=== PATIENT | female | born 1945 ===

== ENCOUNTER 2023-08-07 12:30 | Inpatient (IN) | payer OTHER ==
[~2023-08-07] VITALS: Ht 157.5 cm; Wt 54.4 kg
[2023-08-07] MEDS ORDERED: NORVASC2.5 M1 (14:46)
[2023-08-07] MEDS ORDERED: CRESTOR5 MG (14:46)
[2023-08-07] MEDS ORDERED: DIOVAN40 MG (14:46)
[2023-08-07] MEDS ORDERED: FARXIGA5 MG (14:52)
[2023-08-07] MEDS ORDERED: TRADJENTA5 MG (14:52)
[2023-08-07] MEDS ORDERED: GLUCOTROL XL5 MG (14:53)
[2023-08-07] MEDS ORDERED: LATANOPROST2.5 ML (14:53)
[2023-08-07] MEDS ORDERED: NASAL MIST126 ML (14:53)
[2023-08-07] MEDS ORDERED: OSTERA TABLET1 EACH (14:53)
[2023-08-07] MEDS ORDERED: DORZOLAMIDE HCL10 ML (14:53)
[2023-08-17] MEDS ORDERED: ERTAPENEM SODIUM 1,000 MG VIAL IV ONE (12:45)
[2023-08-17] MEDS ORDERED: DIBUCAINE 15 GM OINT..GM. TUBE RECTAL ONE (12:45)
[2023-08-17] MEDS ORDERED: POVIDONE-IODINE 118 ML BOTT TOP ONE (12:45)
[2023-08-17] MEDS ORDERED: BUPIVACAINE HCL 30 ML VIAL IJ ONE (12:45)
[2023-08-17] MEDS ORDERED: HEMOSTATIC MATRIX 1 KIT KIT TOP ONE (12:45)
[2023-08-17] MEDS ORDERED: LIDOCAINE HCL 1%/EPINEPHRINE 20ML VIAL IJ ONE (12:45)
[2023-08-17] MEDS ORDERED: RINGERS SOLUTION,LACTATED 1,000 ML IV SCH ×2 (13:00→15:30)
[2023-08-17] MEDS ORDERED: MORPHINE SULFATE 4 MG/ML CARTRIDGE IV PRN ×2 (13:00→15:30)
[2023-08-17] MEDS ORDERED: ONDANSETRON HCL 2 MG/ML VIAL IV PRN ×2 (13:00→15:30)
[2023-08-17] MEDS ORDERED: DEXTROSE 50 % IN WATER 0.5 G/ML VIAL IV PRN (13:00)
[2023-08-17] MEDS ORDERED: SUGAMMADEX SODIUM 200 MG/2 ML VIAL IV ONE (13:45)
[2023-08-17] MEDS ORDERED: ACETAMINOPHEN 500 MG GEL..CAP PO SCH ×2 (14:00→18:00)
[2023-08-17 14:41] LABS: HEMOGLOBIN 12.6 g/dL (12.0-15.00); MEAN CELL VOLUME 92.7 fL (80.00-100.00); MEAN CORPUSCULAR HEMOGLOBIN 30.7 pg (27.00-32.0); MEAN CORPUSCULAR HGB CONC 33.1 g/dl (32.0-36.0); PLATELET COUNT 193 K/uL (150-450); RED CELL DISTRIBUTION WIDTH 13.6 % (11.5-14.5)
[2023-08-17 14:59] LABS: ALBUMIN 3.4 gm/dL (3.4-5.0); CALCIUM 8.7 mg/dL (8.5-10.1); CREATININE SERUM 1.58 mg/dL (0.55-1.02); GFR 31.47; MAGNESIUM 2.2 mg/dL (1.8-2.4); PHOSPHOROUS 5.9 mg/dL (2.5-4.9); POTASSIUM 4.24 mEq/L (3.5-5.1)
[2023-08-17] MEDS ORDERED: OxyCODONE HCL 5 MG TABLET (ROXICODONE) PO PRN (15:30)
[2023-08-17] MEDS ORDERED: DEXTROSE 50 % IN WATER 0.5 G/ML DISP.SYRIN IV PRN (15:30)
[2023-08-17] MEDS ORDERED: FAMOTIDINE/PF 20 MG/2 ML VIAL IV PUSH SCH ×2 (17:00→21:00)
[2023-08-17] MEDS ORDERED: HYOSCYAMINE SULFATE 0.125 MG TAB.SUBL SL SCH (17:00)
[2023-08-17] MEDS ORDERED: POLYETHYLENE GLYCOL 3350 17 GM BLIST.PACK PO SCH ×2 (17:00)
[2023-08-17] MEDS ORDERED: CELECOXIB 200 MG CAPSULE PO SCH (17:00)
[2023-08-17] MEDS ORDERED: GABAPENTIN 300 MG CAPSULE PO SCH ×2 (17:00)
[2023-08-18 07:56] LABS: HEMOGLOBIN 12.6 g/dL (12.0-15.00); MEAN CELL VOLUME 92.7 fL (80.00-100.00); MEAN CORPUSCULAR HEMOGLOBIN 30.7 pg (27.00-32.0); MEAN CORPUSCULAR HGB CONC 33.1 g/dl (32.0-36.0); PLATELET COUNT 161 K/uL (150-450); RED BLOOD COUNT 4.09 M/uL (4.00-6.00); RED CELL DISTRIBUTION WIDTH 13.3 % (11.5-14.5)
[2023-08-18 08:38] LABS: ALBUMIN 3.1 gm/dL (3.4-5.0); CALCIUM 8.2 mg/dL (8.5-10.1); CREATININE SERUM 1.45 mg/dL (0.55-1.02); GFR 34.74; MAGNESIUM 1.8 mg/dL (1.8-2.4); PHOSPHOROUS 4.2 mg/dL (2.5-4.9); POTASSIUM 4.36 mEq/L (3.5-5.1)
[2023-08-18] MEDS ORDERED: PATIENTS OWN MEDICATION (MEDICAMENTO EN PISO) PO SCH (09:00)
[2023-08-18] MEDS ORDERED: AMLODIPINE BESYLATE 5 MG TABLET PO SCH (09:00)
[2023-08-18] MEDS ORDERED: INTESTINEX680 M1 PO (09:35)
[2023-08-18] MEDS ORDERED: NUPERCAINAL56.7 GM TOP (09:36)
[2023-08-18] MEDS ORDERED: ENOXAPARIN SODIUM 40 MG/0.4 ML SYRINGE SUBCUTANEO SCH ×2 (17:00)
[2023-08-19] MEDS ORDERED: ENOXAPARIN SODIUM 40 MG/0.4 ML SYRINGE SUBCUTANEO SCH ×2 (09:00)
== END 2023-08-18 13:00 | disposition home or self-care (01) | DRG 349 ==
LOC: SURH 08-17 07:46 → O/R 08-17 07:46 → SURH 08-17 10:30
PROVIDERS: ADMIT Surgery; ATTEND Surgery
PROC: 0DBP7ZZ Excision of Rectum, Via Natural or Artificial Opening (ICD-10-PCS; principal; 2023-08-17 10:30)
DX: D12.8 Benign neoplasm of rectum (principal); Z20.822 Contact with and (suspected) exposure to COVID-19